=== PATIENT | male | born 1995 | race Asian ===

== ENCOUNTER 2019-12-09 23:49 | Emergency (ER) | payer SELFPAY ==
[~2019-12-09] VITALS: Ht 177.8 cm; Wt 81.6 kg
[2019-12-09 23:58] VITALS: Ht 177.8 cm; Wt 81.6 kg
[2019-12-10 00:37] LABS: CALCIUM 9.4 mg/dL (8.5-10.1); CARBON DIOXIDE 20.9 mmol/L (21-32); CHLORIDE SERUM 99 mmol/L (98-107); CREATININE SERUM 1.5 mg/dL (0.7-1.3); GFR1 > 60 mL/min; GLUCOSE SERUM 117 mg/dL (74-106); POTASSIUM SERUM 3.7 mmol/L (3.5-5.1); SODIUM SERUM 137 mmol/L (136-145)
[2019-12-10 00:41] LABS: ALBUMIN 4.3 g/dL (3.4-5.0); ALKALINE PHOSPHATASE 56 U/L (46-116); ALT/SGPT 41 U/L (16-63); AST/SGOT 30 U/L (15-37); BILIRUBIN TOTAL 0.6 mg/dL (0.20-1.00)
[2019-12-10 00:43] LABS: TOTAL PROTEIN, SERUM 8.3 g/dL (6.4-8.2)
[2019-12-10 00:53] LABS: BASOPHIL % 1.7 % (0-2); PLATELET COUNT 311 x10^3mcL (130-400); RED CELL DISTRIBUTION WIDTH 13.3 % (11.5-14.5)
[2019-12-10 02:32] VITALS: BP 119/74
== END 2019-12-10 02:32 | disposition home or self-care (01) ==
LOC: ED 23:49
PROVIDERS: Specialist
DX: F14.129 Cocaine abuse with intoxication, unspecified (principal); Z88.8 Allergy status to other drugs, medicaments and biological substances
CPT/HCPCS: 36415; G0480; J1630; J2060